=== PATIENT | female | born 1970 | race Caucasian/White ===

== ENCOUNTER → 2017-08-16 | Outpatient (CLI) | payer OTHER ==
[~2017-08-16] MED LIST: METHACHOLINE KIT (J7674) INH
== END ==
LOC: M CARPUL 14:20
DX: R06.00 Dyspnea, unspecified (principal)

== ENCOUNTER 2019-01-30 19:01 | Inpatient (IN) | payer OTHER ==
[~2019-01-30] VITALS: Ht 162.6 cm; Wt 105.8 kg
[~2019-01-30 19:01] MED LIST changes: +HYDR-3363 PO; -METHACHOLINE KIT (J7674) INH
[2019-01-30 19:45] LABS: BASO # 0.1 10^3/uL (0.0-0.2); BASO % 0.4 % (0.0-1.0); EOS % 0.2 % (0.0-3.0); HEMATOCRIT 43.2 % (36.0-47.0); HEMOGLOBIN 13.6 g/dl (12.0-15.5); LYMPH % 12.7 % (24.0-44.0); MEAN CORPUSCULAR HEMOGLOBIN 28.3 pg (27.0-33.0); MEAN CORPUSCULAR HGB CONC 31.5 g/dl (32.0-36.5); MONO # 0.5 10^3/uL (0.0-0.8); MONO % 3.3 % (0.0-5.0); NEUTROPHILS # 13.1 10^3/uL (1.5-8.5); NEUTROPHILS % 82.8 % (36.0-66.0); PLATELET COUNT, AUTOMATED 191 10^3/uL (150-450); WHITE BLOOD COUNT 15.8 10^3/uL (4.0-10.0)
[2019-01-30 20:04] LABS: HCG, SERUM QUALITATIVE NEGATIVE (NEGATIVE)
[2019-01-30 20:06] LABS: ALBUMIN 4.1 GM/DL (3.2-5.2); ALT/SGPT 20 U/L (12-78); BILIRUBIN,DIRECT < 0.1 MG/DL (0.0-0.2); BILIRUBIN,TOTAL 0.4 MG/DL (0.2-1.0); BLOOD UREA NITROGEN 22 MG/DL (7-18); CALCIUM LEVEL 9.8 MG/DL (8.5-10.1); CARBON DIOXIDE LEVEL 23 MEQ/L (21-32); CHLORIDE LEVEL 104 MEQ/L (98-107); CREATININE FOR GFR 1.22 MG/DL (0.55-1.30); GLOMERULAR FILTRATION RATE 50.5 (>58); GLUCOSE, FASTING 156 MG/DL (70-100); LIPASE 280 U/L (73-393); POTASSIUM SERUM 4.2 MEQ/L (3.5-5.1); SODIUM LEVEL 138 MEQ/L (136-145); TOTAL PROTEIN 8.5 GM/DL (6.4-8.2)
[2019-01-30] MEDS ORDERED: KETOROLAC 30 MG/ML VIAL (J1885) IV ONE (20:30)
[2019-01-30] MEDS ORDERED: PROMETHAZINE INJ 25 MG/ML VIAL (J2550) IV ONE (20:30)
[2019-01-30] MEDS ORDERED: NS 1,000 ML IV ONE (20:30)
--- NOTE | 2019-01-30 21:40 | REPVR ---
PROCEDURE INFORMATION: Exam: CT Abdomen And Pelvis Without Contrast Exam date and time: 01/30/2019 8:35 PM Clinical history: 48 years old, female; Abdominal pain; Generalized; Additional info: Abd pain TECHNIQUE: Imaging protocol: Computed tomography of the abdomen and pelvis without contrast. Radiation optimization: All CT scans at this facility use at least one of these dose optimization techniques: automated exposure control; mA and/or kV adjustment per patient size (includes targeted exams where dose is matched to clinical indication); or iterative reconstruction. COMPARISON: No relevant prior studies available. FINDINGS: Liver: Normal. No mass. Gallbladder and bile ducts: There has been prior cholecystectomy. Pancreas: Normal. No ductal dilation. Spleen: Normal. No splenomegaly. Adrenals: Normal. No mass. Kidneys and ureters: Small cysts are noted in the right kidney. Kidneys are otherwise unremarkable. No calculi or hydronephrosis. Stomach and bowel: Changes from prior bariatric surgery are noted. Much of the small bowel is dilated and fluid-filled, with small bowel measuring up to 6 cm in diameter. There appears to be a transition point in the right lower quadrant (image 110 of series 201). Appendix: No evidence of appendicitis. Intraperitoneal space: Unremarkable. No free air. No significant fluid collection. Vasculature: No pneumatosis or portal venous gas. Lymph nodes: Unremarkable. No enlarged lymph nodes. Bladder: Unremarkable as visualized. Reproductive: Unremarkable as visualized. Bones/joints: Unremarkable. No acute fracture. Soft tissues: Unremarkable. IMPRESSION: Distal small bowel obstruction, possibly due to adhesions. No perforation or signs of ischemia. COMMENT: Consistent with the [employer] [place] [employer]'s Incidental Findings Committee Report (J Am Marco Radiol 2010): Unless the patient's specific circumstances suggest otherwise, any liver lesion 0.5 cm or less, any cystic kidney lesion less than 1.0 cm, and/or any adrenal lesion 1.0 cm or less not otherwise characterized in this report as possessing suspicious or indeterminate imaging features is/are highly likely to be benign and do not require follow-up imaging or biopsy. Electronically signed by: Chucky Yeung On 01/30/2019 21:40:21 PM
[2019-01-30] MEDS ORDERED: LIDOCAINE 2% 5ML JELLY UROJET TOP ONE (22:00)
[2019-01-30] MEDS ORDERED: MORPHINE 2 MG/ML 1ML VIAL (J2270) IV PRN (23:30)
[2019-01-30] MEDS ORDERED: ONDANSETRON 4MG/2ML VIAL (J2405) IV PRN (23:30)
[2019-01-31] MEDS: LR 1,000 ML IV SCH ×3 (00:37→18:06)
[2019-01-31 01:27] VITALS: BP 146/91
[2019-01-31 06:19] LABS: BASO % 0.3 % (0.0-1.0); EOS % 0.2 % (0.0-3.0); HEMATOCRIT 35.1 % (36.0-47.0); HEMOGLOBIN 11.3 g/dl (12.0-15.5); LYMPH # 1.2 10^3/uL (1.5-5.0); LYMPH % 11.9 % (24.0-44.0); MEAN CORPUSCULAR HEMOGLOBIN 29.4 pg (27.0-33.0); MEAN CORPUSCULAR HGB CONC 32.2 g/dl (32.0-36.5); MEAN CORPUSCULAR VOLUME 91.4 fl (80.0-96.0); MONO # 0.7 10^3/uL (0.0-0.8); NEUTROPHILS # 8.2 10^3/uL (1.5-8.5); NEUTROPHILS % 80.1 % (36.0-66.0); PLATELET COUNT, AUTOMATED 249 10^3/uL (150-450); RED BLOOD COUNT 3.84 10^6/uL (4.00-5.40); WHITE BLOOD COUNT 10.3 10^3/uL (4.0-10.0)
--- NOTE | 2019-01-31 06:49 | HPE ---
DATE OF ADMISSION: 01/30/2019 ADMITTING DIAGNOSIS: Small intestinal obstruction. HISTORY OF PRESENT ILLNESS: The patient is a pleasant 48-year-old woman who presented to the emergency department at about 7:00 p.m. on January 30 complaining of abdominal pain with nausea and vomiting. The patient reports that about a month ago she had an episode of several hours of lower abdominal pain which resolved spontaneously. This may or may not be related to her current episode. At about 1 o'clock in the afternoon on the she noted the onset of some lower abdominal discomfort. The discomfort became more severe and she developed some nausea. She noted radiation of the pain to her back. She developed vomiting at about 4:30 in the afternoon. She reported recurrent episodes of emesis with severe pain. I also noted that in the course of having this vomiting that she had a large bowel movement as well. Because of her persistent discomfort and the nausea and vomiting, she was brought to the emergency department at about 7 o'clock in the evening by ambulance. In the emergency department she has undergone evaluation with some laboratory studies and had a CT scan of the abdomen and pelvis. The CT scan was interpreted as consistent with a small intestinal obstruction and I was consulted. ALLERGIES: The patient denies any known drug allergies. MEDICATIONS: The patient reports that she is not taking any medications routinely. SURGICAL HISTORY: Significant for: Cholecystectomy back in about 2002. She had a Davy-en-Y gastric bypass in about 2009. She has undergone a abdominoplasty after significant weight loss from her gastric bypass. She also underwent a breast augmentation and mammoplasty. She has had a loop electrosurgical excision procedure LEEP procedure. MEDICAL HISTORY: The patient reports that she lost about 150 pounds after her gastric bypass, down to 156, but then regained some significant weight over the last year or two. She reports problems with vaginal bleeding and pain with intercourse and reports that she is scheduled for a robotic-assisted hysterectomy on February 27. SOCIAL HISTORY: The patient is a nonsmoker. She denies significant alcohol intake. She is . Primary physician is Dr. Lakesha Fitzgerald. FAMILY HISTORY: Noncontributory. REVIEW OF SYSTEMS: Reveals no chest pain or palpitations or other cardiac issues. She denies any cough, wheezing or sputum production. She has had no dysuria or hematuria. She has not had any melena or hematochezia. She reports that she tends toward constipation with firm stool. She will sometimes go several days between bowel movements. She is not having any melena or hematochezia. She denies any history of deep vein thrombosis or pulmonary embolus. She denies any significant bone or joint issues at this time. PHYSICAL EXAMINATION: Reveals a pleasant mildly obese woman lying quietly on the ER stretcher. She has a nasogastric tube in place draining a small amount of greenish brown turbid fluid. Sclerae are anicteric. Skin is warm and dry. Neck is supple without mass. Heart exam shows a regular rate and rhythm and she is not tachycardic. Lungs are clear to auscultation bilaterally. The abdomen shows several small scars consistent with a prior surgery. She has active bowel sounds, particularly in the lower quadrant. There is no tympany to percussion. There is no tenderness to percussion. The abdomen is soft throughout and without any tenderness to palpation currently. There is no evident hernia. Extremities are without peripheral edema. Laboratory studies include a CBC which revealed a white count of 15.8 with a hemoglobin of 14, hematocrit of 43 and platelet count of 191,000. Her differential count showed 83% neutrophils, 13% lymphocytes and 3% monocytes. Urinalysis showed a specific gravity of 1.018 with a pH of 5.0. Protein and glucose were negative. Bilirubin and nitrites were negative. Leukocyte esterase was 1+ and her microscopic showed 10 white cells and 3 red cells per high-power field. She had a small amount of mucus and only 1 squamous epithelial cell per high-power field. Her chemistry profile revealed a sodium of 138, potassium 4.2, chloride 104, CO2 of 23, BUN of 22, creatinine of 1.2, glucose of 156. Liver function tests are normal. Lipase was normal and her HCG was negative. The CT scan of the abdomen and pelvis I reviewed personally. She has the expected findings of her gastric bypass. She has some surgical clips in the region of the gallbladder fossa consistent with prior cholecystectomy. There are some mildly dilated fluid-filled loops of small bowel in the midabdomen extending down into the lower abdomen as well. The colon is nicely decompressed and there is at least some distal small bowel that appears to be well decompressed. There is no free air or free fluid. IMPRESSION: 1. Possible small bowel obstruction secondary to adhesions. 2. Status post gastric bypass. PLAN: Review of the CT does show some mild dilation of the mid to distal small bowel with fluid. She currently has no pain. She does report that during her nausea and vomiting she had a large amount of stool passed raising the possibility that perhaps this had some causative effect on her symptoms. Her NG tube is draining a small amount of material, but her NG tube is unlikely to drain effectively given her previous gastric bypass. It is possible that she is already resolving whatever obstruction she had given the resolution of her discomfort. She will be placed on inpatient status with her NG to low intermittent suction. She will receive IV maintenance fluid. I will start her on Protonix to decrease her gastric secretions. She can have analgesics as necessary. I will reassess her in the morning and check her CBC to assess the course of her white blood cell count and also have a KUB done in the morning, and we will decide how to proceed from there.
[2019-01-31 06:50] VITALS: BP 142/80
[2019-01-31] MEDS: PANTOPRAZOLE 40MG INJ (PROTONIX) (C9113) IV SCH (08:09)
[2019-01-31] MEDS: KETOROLAC 30 MG/ML VIAL (J1885) IV PRN (09:03)
--- NOTE | 2019-01-31 10:12 | REP ---
Supine abdomen two views: Comparison is the abdomen/pelvis CT of 01/30/2019. There are a few scattered nondilated air-filled bowel loops. I note that on the comparison CT. The dilated small bowel loops are all fluid-filled without air fluid levels . Therefore, these dilated bowel loops may not be visible on plain films. There is a tip of the nasogastric tube in the abdominal left upper quadrant. There are surgical clips in the abdominal right upper quadrant. There are pelvic calcifications, likely phleboliths. Skeletal structures and soft tissues otherwise are unremarkable . Impression: The visualized bowel loops containing air are not distended. On the comparison CT. The distended small bowel loops are fluid filled without air fluid levels, therefore, may not be visible on plain films. Electronically Signed by Ramiro Gordillo MD 01/31/2019 10:03 A
--- NOTE | 2019-01-31 13:33 | IPN ---
DATE: 01/31/2019 HISTORY: The patient was admitted late last night with symptoms of a bowel obstruction with abdominal pain, nausea and vomiting and a CT scan that was interpreted as suggesting a fairly distal small bowel obstruction. A nasogastric tube was placed and she was started on some maintenance intravenous (IV) fluid. Vital signs show that the patient has been afebrile since admission. Her pulse is in the 70s generally and her blood pressure is normal. Intake and output shows that she had 750 mL in overnight with 150 mL out of her nasogastric (NG) tube. PHYSICAL EXAMINATION: The patient reports no pain at present. She is awake and alert. Heart exam shows a regular rate and rhythm. The lungs are clear. The abdomen is mildly obese. She has bowel sounds that are present. The abdomen is soft and nontender without appreciable mass. LABORATORY STUDIES: This morning she had a CBC that showed a white count of 10, down from 16 last night. Hemoglobin was 11 with a hematocrit of 35. Differential count shows 80% neutrophils, 12% lymphocytes and 7% monocytes. The patient had an abdominal x-ray this morning that showed no distended bowel loops with some scattered air in the colon in particular. IMPRESSION: The patient is having no abdominal pain basically since admission. She reported having a large bowel movement just before coming to the hospital. I think it is quite likely that her intestinal obstruction has resolved. PLAN: The patient's NG tube was removed. I will start her on some sips of clear liquids and if she tolerates these she will be advanced then onto a regular diet afterwards if the unlimited clears are tolerated. Her IV will be cut back slightly to 75 mL/h. The patient was counseled regarding the plan and is in agreement.
[2019-01-31 15:11] VITALS: BP 129/72
[2019-01-31 20:00] VITALS: BP 102/58
[2019-02-01 01:10] VITALS: BP 142/74
[2019-02-01 06:42] VITALS: BP 104/62
[2019-02-01] MEDS: LR 1,000 ML IV SCH (06:52)
[2019-02-01] MEDS: PANTOPRAZOLE 40MG INJ (PROTONIX) (C9113) IV SCH (08:31)
[2019-02-01] MEDS: KETOROLAC 30 MG/ML VIAL (J1885) IV PRN (08:39)
[2019-02-01 10:00] VITALS: BP 109/64
[2019-02-01] MEDS ORDERED: MOM 30ML SUSPENSION UDC PO ONE (10:45)
[2019-02-01 14:00] VITALS: BP 130/68
[2019-02-01 18:00] VITALS: BP 117/71
[2019-02-01 22:00] VITALS: BP 124/71
[2019-02-02 06:53] VITALS: BP 114/70
[2019-02-02] MEDS: PANTOPRAZOLE 40MG INJ (PROTONIX) (C9113) IV SCH (07:39)
--- NOTE | 2019-02-02 09:49 | IPNPDOC ---
Subjective General Date/Time Seen The patient was seen on 02/02/19 at 09:45. Subject Chief Complaint/History The patient is a 48-year-old female admitted with a reason for visit of Small Bowel Obstruction. Shes tolerating her diet. She denies any nasea, bloating. Shes passing a lot of flatus. No BMs yesterday. Current Medications Current Medications Current Medications Medications (Trade) Dose Ordered Sig/Gerry Route PRN Reason Start Time Stop Time Status Last Admin Dose Admin Ketorolac Tromethamine (ToRADol) 30 mg Q6HP PRN IV MILD/MODERATE PAIN (PS 1-7) 01/30/19 23:30 02/04/19 23:29 02/01/19 08:39 Lactated Ringer's 1,000 ml @ 75 mls/hr [id number] IV 01/30/19 23:25 02/01/19 18:32 DC 02/01/19 06:52 Morphine Sulfate (Morphine Sulfate Inj) 2 mg Q2H PRN IV MODERATE/SEVERE PAIN (PS 5-10) 01/30/19 23:30 02/02/19 07:51 Ondansetron HCl (ZOFRAN INJection) 4 mg Q6HP PRN IV NAUSEA OR VOMITING 01/30/19 23:30 02/02/19 07:52 Pantoprazole Sodium (Protonix) 40 mg DAILY IV 01/31/19 09:00 02/02/19 07:39 Allergies Coded Allergies: No Known Allergies (Unverified , 03/27/17) Objective Physical Examination Examination GENERAL APPEARANCE:very comfortable. SKIN: Warm and moist. HEENT: Normocephalic, atraumatic. [place] palpebral conjunctiva, anicteric sclerae. Lips and mucosa appear moist. NECK: Supple, no thyromegaly. No obvious jugular venous distention. LUNGS: Clear to auscultation bilaterally. No wheezing appreciated. HEART: No chest wall abnormalities. Regular rate and rhythm with no murmurs appreciated. ABDOMEN: Abdomen is mild obese, soft, nondistended. nontender on palpation. EXTREMITIES: Extremities have no deformities. No edema identified. Vital Signs Vital Signs Date Time Temp Pulse Resp B/P (MAP) Pulse Ox O2 Delivery O2 Flow Rate FiO2 02/02/19 07:51 20 Room Air 02/02/19 06:53 98.7 69 114/70 (85) 98 I&Os I&O- Last 24 Hours up to 6 AM 02/02/19 06:00 Intake Total 3090 ml Output Total 0 ml Balance 3090 ml Laboratory Data Microbiology Microbiology 01/30/19 Urine Culture - Final, Complete Escherichia Coli Impression small bowel obstruction resolved gastric bypass status tolerating diet ok to go home today Plan / VTE VTE Prophylaxis Ordered?: Yes TITI ANDERSON MD Feb 02, 2019 09:49
== END 2019-02-02 10:30 | disposition home or self-care (01) | DRG 389 ==
LOC: EDBD 19:01 → M ED 19:01 → M ED INP 23:25 → M MS5PR 01-31 01:09
PROVIDERS: ADMIT Surgery; ATTEND Surgery
DX: K56.50 Intestinal adhesions [bands], unspecified as to partial versus complete obstruction (principal); Z68.41 Body mass index [BMI] 40.0-44.9, adult; Z98.84 Bariatric surgery status; Z90.49 Acquired absence of other specified parts of digestive tract; N94.10 Unspecified dyspareunia; E66.9 Obesity, unspecified

== ENCOUNTER → 2019-02-13 | Outpatient (CLI) | payer OTHER ==
[~2019-02-13] MED LIST changes: +ACET1TAB55 PO; +EXCETAB33 PO; +VENTAER INH
[2019-02-13 18:00] LABS: BASO # 0.1 10^3/uL (0.0-0.2); BASO % 0.7 % (0.0-1.0); EOS # 0.2 10^3/uL (0.0-0.5); HEMATOCRIT 39.2 % (36.0-47.0); HEMOGLOBIN 12.5 g/dl (12.0-15.5); LYMPH # 2.8 10^3/uL (1.5-5.0); LYMPH % 32.2 % (24.0-44.0); MEAN CORPUSCULAR HEMOGLOBIN 28.8 pg (27.0-33.0); MEAN CORPUSCULAR HGB CONC 31.9 g/dl (32.0-36.5); MEAN CORPUSCULAR VOLUME 90.3 fl (80.0-96.0); MONO # 0.8 10^3/uL (0.0-0.8); MONO % 9.2 % (0.0-5.0); NEUTROPHILS # 4.8 10^3/uL (1.5-8.5); NEUTROPHILS % 55.6 % (36.0-66.0); PLATELET COUNT, AUTOMATED 308 10^3/uL (150-450); RED BLOOD COUNT 4.34 10^6/uL (4.00-5.40); WHITE BLOOD COUNT 8.6 10^3/uL (4.0-10.0)
[2019-02-13 18:14] LABS: BLOOD UREA NITROGEN 11 MG/DL (7-18); CALCIUM LEVEL 8.8 MG/DL (8.5-10.1); CARBON DIOXIDE LEVEL 25 MEQ/L (21-32); CHLORIDE LEVEL 111 MEQ/L (98-107); CREATININE FOR GFR 0.95 MG/DL (0.55-1.30); GLOMERULAR FILTRATION RATE > 60.0 (>58); GLUCOSE, FASTING 53 MG/DL (70-100); SODIUM LEVEL 141 MEQ/L (136-145)
[2019-02-13 19:27] LABS: APPEARANCE, URINE CLEAR (CLEAR); BACTERIA, URINE AUTO 2+ (NEGATIVE); BILIRUBIN, URINE AUTO NEGATIVE (NEGATIVE); BLOOD, URINE BLOOD 1+ (NEGATIVE); COLOR, URINE YELLOW (YELLOW); GLUCOSE, URINE (UA) AUTO NEGATIVE (NEGATIVE); KETONE, URINE AUTO NEGATIVE (NEGATIVE); LEUKOCYTE ESTERASE, URINE AUTO TRACE (NEGATIVE); MUCUS, URINE SMALL (NEGATIVE); NITRITE, URINE AUTO NEGATIVE (NEGATIVE); PROTEIN, URINE AUTO NEGATIVE (NEGATIVE); RBC, URINE AUTO 1 /HPF (0-3); SPECIFIC GRAVITY URINE AUTO 1.011 (1.002-1.035); SQUAMOUS EPITHELIAL CELL UR AU 1 /HPF (0-6); UROBILINOGEN, URINE AUTO 0.2 mg/dL (0.0-2.0); WBC, URINE AUTO 7 /HPF (0-3)
== END ==
LOC: M LAB 17:15
PROVIDERS: ATTEND Family Medicine
DX: Z01.818 Encounter for other preprocedural examination (principal)

== ENCOUNTER 2019-02-27 09:05 | Day surgery (SDC) | payer OTHER ==
[~2019-02-27] VITALS: Ht 160 cm; Wt 99.3 kg
[~2019-02-27 09:05] MED LIST changes: +KETOROLAC 60 MG/2 ML VIAL (J1885) As Ordered ONE; +LR 1,000 ML IV ONE; +SUGAMMADEX SODIUM 500 MG/5 ML VIAL (BRIDION) As Ordered ONE; +ceFAZolin SOD 2 GM in IV 1 EA IV ONE
[2019-02-27] MEDS ORDERED: fentaNYL 100 MCG/2 ML INJECTION (J3010) As Ordered ONE (09:21)
[2019-02-27] MEDS ORDERED: LIDOCAINE 2% INJ 100 MG/5 ML SDV (FOR ANES.) As Ordered ONE ×4 (09:21→11:08)
[2019-02-27] MEDS ORDERED: MIDAZOLAM INJ 2 MG/2 ML VIAL (J2250) As Ordered ONE (09:21)
[2019-02-27] MEDS ORDERED: PROPOFOL 200 MG/20 ML VIAL As Ordered ONE (09:21)
[2019-02-27] MEDS ORDERED: dexameTHASONE 4 MG/ML 1ML VIAL (J1100) As Ordered ONE (09:21)
[2019-02-27] MEDS ORDERED: ROCURONIUM BROMIDE 50 MG/5 ML VIAL As Ordered ONE ×2 (09:21→11:13)
[2019-02-27] MEDS ORDERED: METOCLOPRAMIDE INJ 10MG/2ML VIAL (J2765) As Ordered ONE (09:22)
[2019-02-27] MEDS ORDERED: ONDANSETRON 4MG/2ML VIAL (J2405) As Ordered ONE (09:22)
[2019-02-27] MEDS ORDERED: SCOPOLAMINE 1MG TRANSDERMAL PATCH TOP ONE (09:45)
[2019-02-27 09:46] LABS: HEMATOCRIT 37.7 % (36.0-47.0); HEMOGLOBIN 12.2 g/dl (12.0-15.5); MEAN CORPUSCULAR HEMOGLOBIN 28.5 pg (27.0-33.0); MEAN CORPUSCULAR HGB CONC 32.4 g/dl (32.0-36.5); MEAN CORPUSCULAR VOLUME 88.1 fl (80.0-96.0); PLATELET COUNT, AUTOMATED 319 10^3/uL (150-450); RED BLOOD COUNT 4.28 10^6/uL (4.00-5.40); WHITE BLOOD COUNT 5.2 10^3/uL (4.0-10.0)
[2019-02-27 10:05] LABS: HCG, SERUM QUALITATIVE NEGATIVE (NEGATIVE)
[2019-02-27] MEDS ORDERED: KETAMINE HCL 200 MG/20 ML VIAL As Ordered ONE (11:12)
[2019-02-27] MEDS ORDERED: ACETAMINOPHEN 1000MG 100ML IV BTL (OFIRMEV) (J0131 PER 10MG) As Ordered ONE (11:26)
[2019-02-27] MEDS ORDERED: LR 500 ML IV ONE (13:00)
[2019-02-27] MEDS ORDERED: LR 500 ML IV PRN (13:00)
[2019-02-27] MEDS: LR 1,000 ML IV SCH ×2 (13:15→20:24)
[2019-02-27] MEDS ORDERED: ALBUTEROL 90 MCG/ACT 8GM HFA INHALER INH PRN (13:15)
[2019-02-27] MEDS ORDERED: MORPHINE 1MG/ML IN 0.9% NACL 100ML IV BAG As Ordered ONE (13:46)
[2019-02-27] MEDS ORDERED: MORPHINE 1MG/ML IN 0.9% NACL 100ML IV BAG IV PRN (14:00)
[2019-02-27] MEDS ORDERED: EPIDURAL/PCA KEYS XX PRN (14:00)
[2019-02-27] MEDS ORDERED: NALOXONE INJ 0.4 MG/1 ML VIAL (J2310) IV PRN (14:00)
[2019-02-27] MEDS ORDERED: NALBUPHINE HCL 10 MG/ML AMP (J2300) IV PRN (14:00)
[2019-02-27] MEDS ORDERED: diphenhydrAMINE INJ 50MG/ML VIAL (J1200) IV PRN (14:00)
--- NOTE | 2019-02-27 14:00 | RO ---
DATE OF SURGERY: 02/27/2019 PREOPERATIVE DIAGNOSES AND INDICATION FOR SURGERY: Pain and bleeding. Additional diagnoses of previous abdominoplasty and adhesions. POSTOPERATIVE DIAGNOSES: Pain and bleeding. Additional diagnoses of previous abdominoplasty and adhesions with adhesions as expected and some small endometriotic implants. PROCEDURE: Robotic-assisted hysterectomy with bilateral salpingectomy. The patient retained her ovaries at her request. She also had lysis of adhesions. SURGEON: Fang Henley MD PRODUCT SAFETY SPECIALIST: YANI Paul ANESTHESIA: General endotracheal anesthesia. SPECIMENS: Uterus and tubes. BRIEF DESCRIPTION OF PROCEDURE: Domenica was brought to the operating room where sufficient general endotracheal anesthesia was induced. She was prepped, draped, and positioned in the usual sterile fashion, and a Reece with the ability to backfill placed and the uterine manipulator placed after the uterus had been sounded to 7 with a size large cup on the manipulator. It should be noted that the uterus was immobile, even under anesthesia, as expected, and so quite well supported. We then turned our attention to the abdomen, where a transverse semilunar incision was made over the line of her previous incision where they had moved her belly button for the abdominoplasty. We followed inferior to the new umbilical site, carefully working our way down to the fascia. There were some green suture that were noted; and in order to continue the dissection, we had to cut and remove one of those; and we then carefully elevated the fascia and carefully incised it and used the hemostat and the S retractor for visualization, following which we were able to enter the peritoneal cavity and place the robotic trocar. CO2 insufflation was then begun. After adequate CO2 insufflation, the peritoneal cavity was visualized. There were normal shiny peritoneal surfaces throughout. There were no excrescences, exudate, or lesions. There were then adhesions noted. Pictures taken to document some of the abdomen which did not have a tremendous amount of adhesions, but there was an adhesion of the colon angling off to the left and then sharply back to midline, giving an almost 180 kink to tissues. This was taken down eventually, but at this point, we are just evaluating. Placed two left-sided ports and one right-sided port. Placed the patient in Trendelenburg, following which the adhesion was noted, and then docked the robot. Working from the robot port, we were able to take down the bowel adhesion just using cold scissors. We did not need to use any cautery, and we were able to find a reasonable plane for these; and following this dissection, I did not see any further loops of bowel that seemed to be kinked in that fashion. We were able to identify the left ovary and tube, and we carefully using cautery the tube from the ovary without injuring the infundibulopelvic ligament and then carefully worked our way through the mesentery of the tube freeing it without any evidence of injury to the ovarian vasculature and then carefully cauterized and transected the uteroovarian suspensory ligament on the left and carefully cauterized and transected the round ligament on the left. We then turned our attention to the right side and similarly the tube from the ovary and carefully cauterized the tube mesentery, transected it, and then the uteroovarian suspensory ligament on the right side was carefully cauterized and transected, and then the round ligament on the right side was carefully cauterized and transected. We then dissected with cold scissors through the broad posteriorly, letting the ureters drop away; and then anteriorly, we backfilled the bladder, confirmed the bladder location, and then used the monopolar to dissect anteriorly to create the bladder flap, and then used bipolar cautery to control the uterine vasculature bilaterally, starting first on the left, then moving to the right; and having cauterized it, we then transected it, and then made the colpotomy anteriorly, worked our way around the base of the uterine manipulator cup, the uterus from the patient. We then delivered the uterus and fallopian tube into the vagina. There was a small pumping vaginal vessel on the patient's right side. We used a V-Loc suture to oversew that and then oversew the angle and work our way towards the midline on that side and used a separate V-Loc suture on the left and then overlapped those again in the midline incorporating, of course, the uterosacrals and then left the tissues under low tension, irrigated and evaluated, confirmed good hemostasis, lack of injury to the bowel or bladder or ureters, and no other adhesions that appeared to be taken down. Thus, the V-Loc were then cut and the needles removed. The instruments removed from the patient. The patient removed from Trendelenburg with, of course, the CO2 allowed to escape, and then the fascial wound at the umbilicus was closed with the 0 Vicryl retention sutures, and 3-0 Vicryl was used on the skin and subcuticular stitches at all four wounds. Then, dry sterile dressings were then applied. There was, of course, good hemostasis and approximation at each wound. At the completion of the case, estimated blood loss about 150 mL. Fluid replacement was crystalloid. COMPLICATIONS: None. CONDITION AND DISPOSITION: Domenica tolerated the procedure well and was recovering in the recovery room in good condition.
[2019-02-27 15:00] VITALS: BP 119/65
[2019-02-27 15:30] VITALS: BP 121/67
[2019-02-27 16:30] VITALS: BP 123/74
[2019-02-27 17:30] VITALS: BP 124/76
[2019-02-27 20:20] VITALS: BP 121/73
[2019-02-27] MEDS: IBUPROFEN 600 MG TAB PO PRN (20:24)
[2019-02-28 02:24] VITALS: BP 114/52
[2019-02-28 03:15] VITALS: BP 122/60
[2019-02-28 04:00] VITALS: BP 118/62
[2019-02-28 05:45] VITALS: BP 127/64
[2019-02-28] MEDS ORDERED: NORCO, ANEXSIA 5/325MG TABLET (HYDROcodone/ACETAMINOPHEN) PO PRN (06:00)
[2019-02-28] MEDS: LR 1,000 ML IV SCH (06:14)
[2019-02-28 06:53] LABS: HEMATOCRIT 35.9 % (36.0-47.0); HEMOGLOBIN 11.4 g/dl (12.0-15.5); MEAN CORPUSCULAR HGB CONC 31.8 g/dl (32.0-36.5); MEAN CORPUSCULAR VOLUME 91.3 fl (80.0-96.0); RED BLOOD COUNT 3.93 10^6/uL (4.00-5.40)
[2019-02-28] MEDS: IBUPROFEN 600 MG TAB PO PRN (09:09)
== END 2019-02-28 10:30 | disposition home or self-care (01) ==
LOC: M SDC 09:05 → M MS5PR 14:40 → M SDC 02-28 10:30
PROVIDERS: ATTEND Obstetrics & Gynecology
DX: R10.2 Pelvic and perineal pain (principal); N73.6 Female pelvic peritoneal adhesions (postinfective); J45.909 Unspecified asthma, uncomplicated; G43.909 Migraine, unspecified, not intractable, without status migrainosus
CPT/HCPCS: 36415; 58571; 84703; 85027; 86850; 86900; 86901; 88307; 96360; 96361; J0131; J0690; J1100; J1885; J2250; J2405; J2765; J3010

== ENCOUNTER → 2019-04-28 | Outpatient (CLI) | payer OTHER ==
[~2019-04-28] MED LIST changes: -KETOROLAC 60 MG/2 ML VIAL (J1885) As Ordered ONE; -LR 1,000 ML IV ONE; -SUGAMMADEX SODIUM 500 MG/5 ML VIAL (BRIDION) As Ordered ONE; -ceFAZolin SOD 2 GM in IV 1 EA IV ONE
[2019-04-28 11:31] LABS: BASO % 0.6 % (0.0-1.0); EOS # 0.1 10^3/uL (0.0-0.5); EOS % 1.9 % (0.0-3.0); HEMATOCRIT 38.9 % (36.0-47.0); HEMOGLOBIN 12.1 g/dl (12.0-15.5); LYMPH # 1.9 10^3/uL (1.5-5.0); LYMPH % 30.1 % (24.0-44.0); MEAN CORPUSCULAR HEMOGLOBIN 28.1 pg (27.0-33.0); MEAN CORPUSCULAR HGB CONC 31.1 g/dl (32.0-36.5); MEAN CORPUSCULAR VOLUME 90.5 fl (80.0-96.0); MONO # 0.4 10^3/uL (0.0-0.8); MONO % 6.9 % (0.0-5.0); NEUTROPHILS # 3.9 10^3/uL (1.5-8.5); NEUTROPHILS % 60.2 % (36.0-66.0); PLATELET COUNT, AUTOMATED 293 10^3/uL (150-450); WHITE BLOOD COUNT 6.4 10^3/uL (4.0-10.0)
[2019-04-28 12:14] LABS: FREE T4 1.12 NG/DL (0.76-1.46); THYROID STIMULATING HORMONE 1.02 uIU/ML (0.358-3.740)
[2019-04-28 12:16] LABS: TOTAL 25(OH) VITAMIN D 24.3 NG/ML (30.0-100.0)
== END ==
LOC: M LAB 10:43
PROVIDERS: ATTEND Family Medicine
DX: G47.00 Insomnia, unspecified (principal)

== ENCOUNTER → 2022-12-12 | Outpatient (CLI) | payer OTHER ==
[~2022-12-12] MED LIST changes: +EXCETAB32 PO; -EXCETAB33 PO
== END ==
LOC: M WHC 15:44
DX: Z12.31 Encounter for screening mammogram for malignant neoplasm of breast (principal)